=== PATIENT | male | born 1960 | race Caucasian/White ===

== ENCOUNTER 2021-01-18 07:44 | Day surgery (SDC) | payer BC, OTHER ==
[2021-01-17 10:47] VITALS: BMI 28.1
[~2021-01-18 07:44] MED LIST: LACTATED RINGERS 1,000 ML IV SCH; LIDOCAINE 1% (10MG/ML) FOR IV START INTRADERMA PRN
[2021-01-18 08:20] VITALS: TEMP 96.4
[2021-01-18] MEDS ORDERED: PROPOFOL 10 MG/ML 20 ML VIAL IV ONE (08:46)
[2021-01-18] MEDS ORDERED: LIDOCAINE 1% INJ 10MG/ML (20 ML MDV) ONE (08:46)
[2021-01-18] MEDS ORDERED: MIDAZOLAM 2 MG/2 ML VIAL ONE (08:46)
--- NOTE | 2021-01-18 08:48 | P.GSHP ---
History of Present Illness H&P Date: 01/18/21 Chief Complaint: History of polyps, GERD, melena 60-year-old male known to our service. Patient underwent previous right colectomy 2013 for multiple polyps. 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 Patient had follow-up colonoscopy shortly after that showing some hyperplastic polyps. Here today for upper and lower endoscopy. Recently patient's had some dark black colored stools. This is been going on for the last 3 weeks. History of chronic reflux. Past Medical History Past Medical History: GERD/Reflux, Hearing Disorder / Deafness Additional Past Medical History / Comment(s): Hx colon polyps, 1 poss cancer. Dark stools History of Any Multi-Drug Resistant Organisms: None Reported Past Surgical History: Bowel Resection, Orthopedic Surgery Additional Past Surgical History / Comment(s): ORIF rt ankle, colonoscopy, EGD. LAPROSCOPIC PARTIAL COLECTOMY 11/28/13. Past Anesthesia/Blood Transfusion Reactions: Previous Problems w/ Anesthesia Additional Past Anesthesia/Blood Transfusion Reaction / Comment(s): Takes a long time to awaken from Anesthesia. DIFFICULT INTUBATION, has a letter re. this. Smoking Status: Former smoker, Vaper - Past Family History Mother Family Medical History: No Reported History Medications and Allergies Home Medications Medication Instructions Recorded Confirmed Type Multivitamins, Thera [Multivitamin 1 tab PO DAILY 01/17/21 01/17/21 History (formulary)] Zantac Otc (Unknown Dose) 1 tab PO DAILY PRN 01/17/21 History Allergies Allergy/AdvReac Type Severity Reaction Status Date / Time No Known Allergies Allergy Verified 01/18/21 08:16 Surgical - Exam Vital Signs Temp Pulse Resp BP Pulse Ox 96.4 F L 71 18 132/70 94 L 01/18/21 08:17 01/18/21 08:17 01/18/21 08:17 01/18/21 08:17 01/18/21 08:17 Physical exam: General: Well-developed, well-nourished HEENT: Normocephalic, sclerae nonicteric Abdomen: Nontender, nondistended Extremities: No edema Neuro: Alert and oriented Assessment and Plan (1) GI bleed Narrative/Plan: Will proceed with upper and lower endoscopy Current Visit: Yes Status: Acute Code(s): K92.2 - GASTROINTESTINAL HEMORRHAGE, UNSPECIFIED SNOMED Code(s): 54299969
--- NOTE | 2021-01-18 09:13 | P.PCN ---
Date of Procedure: 01/18/21 Procedure(s) Performed: PREOPERATIVE DIAGNOSIS: Melena, GI bleed, GERD POSTOPERATIVE DIAGNOSIS: Duodenitis, gastritis with small erosions, distal esophagitis PROCEDURE: 1. EGD with biopsy 2. Colonoscopy ANESTHESIA: MAC SURGEON: Gilberto Kumar M.D. SPECIMENS: Duodenum, antrum, distal esophagus ENDOSCOPIC PROCEDURE: The patient was on the endoscopy table in the left decubitus position. The Olympus gastroscope was inserted into the oropharynx and passed under direct visualization to the region of the third portion of the duodenum. From that point the scope was slowly withdrawn inspecting all surfaces carefully. There was mild duodenitis present. No ulcerations were seen. A biopsy of the duodenum took place. The pylorus was widely patent. The stomach was carefully inspected. The patient had evidence of gastritis with multiple small superficial erosions. One of these was darker in color and I suspect may have been bleeding recently. Biopsies of the antrum took place. Retroflexion revealed a normal hiatus. The patient's esophagus was examined. At the distal esophagus there was mild circumferential distal esophagitis seen. No nodularity or ulcerations were seen. Biopsies of the distal esophagus took place. The esophagitis extended about 1.5-2 cm above the Z line. The remainder the esophagus appear normal. The patient was kept on the endoscopy table in the left decubitus position. The Olympus colonoscope was inserted into the anus and passed under direct visualization to the ileocolonic anastomosis. From that point was slippages scope aspect ulcer care. There were no neoplastic inflammatory bowel lesions seen throughout the transverse descending sigmoid and rectum. The patient had diverticulosis. The prep was somewhat suboptimal and I could not visualize all mucosal surfaces well. Digital rectal examination was normal. The patient was taken to the recovery room in stable condition per anesthesia guidelines. RECOMMENDATIONS: Resume diet. Await biopsy results. Resume antiacid's. Short- term repeat colonoscopy advised.
[2021-01-18 09:16] VITALS: RESP 16
[2021-01-18 09:30] VITALS: BP 107/76; PULSE 68
== END 2021-01-18 09:55 | disposition home or self-care (01) ==
LOC: ORWHC2ENDO 07:44
PROVIDERS: ATTEND Surgery
DX: K29.50 Unspecified chronic gastritis without bleeding (principal); K20.0 Eosinophilic esophagitis; K29.80 Duodenitis without bleeding; K92.1 Melena; H91.90 Unspecified hearing loss, unspecified ear; Z86.010 Personal history of colon polyps; Z90.49 Acquired absence of other specified parts of digestive tract; F17.290 Nicotine dependence, other tobacco product, uncomplicated; G47.33 Obstructive sleep apnea (adult) (pediatric); E66.01 Morbid (severe) obesity due to excess calories; Z68.27 Body mass index [BMI] 27.0-27.9, adult; Z98.890 Other specified postprocedural states; Z79.899 Other long term (current) drug therapy
CPT/HCPCS: 88305; 45378; 43239; J2250; J2001; J2704

== ENCOUNTER → 2021-03-16 | Outpatient (CLI) | payer OTHER ==
--- NOTE | 2021-03-16 15:04 | XR ---
EXAMINATION TYPE: XR chest 2V DATE OF EXAM: 03/16/2021 COMPARISON: Chest x-ray 11/25/2013 HISTORY: RO5, annual physical TECHNIQUE: Frontal and lateral views of the chest are obtained. FINDINGS: There is no focal air space opacity, pleural effusion, or pneumothorax seen. The cardiac silhouette size is within normal limits. Multilevel thoracic spondylosis is present. The aorta is den se. Arthropathy is present at the acromioclavicular joints. The osseous structures are intact. IMPRESSION: No acute cardiopulmonary process.
== END | disposition home or self-care (01) ==
LOC: RADXRMAIN 11:05
PROVIDERS: ATTEND Internal Medicine
DX: R05 Cough (principal)
CPT/HCPCS: 71046